=== PATIENT | male | born 1945 | race Two or more races ===

== ENCOUNTER → 2020-07-08 11:56 | Outpatient (CLI) | payer OTHER | END | disposition home or self-care (01) | LOC: LAB 11:56 | DX: Z20.828 Contact with and (suspected) exposure to other viral communicable diseases (principal) ==

== ENCOUNTER 2020-08-17 03:08 | Emergency (ER) | payer OTHER ==
[~2020-08-17] VITALS: Ht 170.2 cm; Wt 76.2 kg
[2020-08-17] MEDS ORDERED: ADULT LOW DOSE81 M1 (03:32)
[2020-08-17] MEDS ORDERED: HYZAAR 100-12.1 EACH (03:32)
[2020-08-17] MEDS ORDERED: TOPROL XL25 M1 (03:32)
[2020-08-17] MEDS ORDERED: TRICOR48 MG (03:33)
== END 2020-08-17 08:01 | disposition home or self-care (01) ==
LOC: ER 03:08
DX: R59.0 Localized enlarged lymph nodes (principal)